=== PATIENT | female | born 1980 | race African-American/Black ===

== ENCOUNTER 2019-08-13 20:43 | Emergency (ER) | payer OTHER ==
[~2019-08-13] VITALS: Ht 149.9 cm; Wt 61.2 kg
--- NOTE | 2019-08-13 21:18 | PHYS DOC ---
Past Medical History Past Medical History: No Pertinent History Past Surgical History: No Surgical History Alcohol Use: Heavy Drug Use: Cocaine, Marijuana, Methamphetamine Adult General Chief Complaint Chief Complaint: ITCHING HPI HPI Patient is a 38 year old female who presents with itching this has been ongoing for an hour. The patient denies drug use initially but then reports that she did have drugs several weeks ago. The patient states that she's having itching before. Review of Systems Review of Systems Constitutional: Denies fever or chills [] Eyes: Denies change in visual acuity, redness, or eye pain [] HENT: Denies nasal congestion or sore throat [] Respiratory: Denies cough or shortness of breath [] Cardiovascular: No additional information not addressed in HPI [] GI: Denies abdominal pain, nausea, vomiting, bloody stools or diarrhea [] : Denies dysuria or hematuria [] Musculoskeletal: Denies back pain or joint pain [] Integument: Reports itching. Neurologic: Denies headache, focal weakness or sensory changes [] Endocrine: Denies polyuria or polydipsia [] Complete systems were reviewed and found to be within normal limits, except as documented in this note. Current Medications Current Medications Current Medications Medications (Trade) Dose Ordered Sig/Benjamin Start Time Stop Time Status Last Admin Dose Admin Diphenhydramine HCl (Benadryl) 25 mg 1X ONCE 08/13/19 21:15 08/13/19 21:17 DC 08/13/19 21:50 25 MG Haloperidol Lactate (Haldol Inj) 2.5 mg 1X ONCE 08/13/19 21:15 08/13/19 21:17 DC 08/13/19 21:50 2.5 MG Sodium Chloride 1,000 ml @ 1,000 mls/hr 1X STAT 08/13/19 22:18 08/13/19 23:17 DC 08/13/19 22:45 1,000 MLS/HR Allergies Allergies Allergies Coded Allergies Type Severity Reaction Last Updated Verified No Known Drug Allergies 08/13/19 No Physical Exam Physical Exam Constitutional: Well developed, well nourished, no acute distress, non-toxic appearance. [] HENT: Normocephalic, atraumatic, bilateral external ears normal, oropharynx moist, no oral exudates, nose normal. [] Eyes: PERRLA, EOMI, conjunctiva normal, no discharge. [] Neck: Normal range of motion, no tenderness, supple, no stridor. [] Respiratory: Breath sounds are clear in all lobes. Skin: Warm, dry, no erythema, no rash. Has dry skin patches on hands and face with scratch guzman. Back: No tenderness, no CVA tenderness. [] Neurologic: Alert and oriented X 3, normal motor function, normal sensory function, no focal deficits noted. [] Psychologic: Affect normal, judgement normal, mood normal. [] Current Patient Data Vital Signs Vital Signs Date Time Temp Pulse Resp B/P (MAP) Pulse Ox O2 Delivery O2 Flow Rate FiO2 08/13/19 23:35 81 10 98/63 (75) 100 Room Air 08/13/19 21:09 97.4 97.4 Lab Values Laboratory Tests Test 08/13/19 21:35 08/13/19 23:47 White Blood Count 8.0 x10^3/uL (4.0-11.0) Red Blood Count 4.59 x10^6/uL (3.50-5.40) Hemoglobin 12.9 g/dL (12.0-15.5) Hematocrit 39.1 % (36.0-47.0) Mean Corpuscular Volume 85 fL (79-100) Mean Corpuscular Hemoglobin 28 pg (25-35) Mean Corpuscular Hemoglobin Concent 33 g/dL (31-37) Red Cell Distribution Width 13.8 % (11.5-14.5) Platelet Count 275 x10^3/uL (140-400) Neutrophils (%) (Auto) 64 % (31-73) Lymphocytes (%) (Auto) 31 % (24-48) Monocytes (%) (Auto) 4 % (0-9) Eosinophils (%) (Auto) 1 % (0-3) Basophils (%) (Auto) 0 % (0-3) Neutrophils # (Auto) 5.1 x10^3/uL (1.8-7.7) Lymphocytes # (Auto) 2.5 x10^3/uL (1.0-4.8) Monocytes # (Auto) 0.3 x10^3/uL (0.0-1.1) Eosinophils # (Auto) 0.0 x10^3/uL (0.0-0.7) Basophils # (Auto) 0.0 x10^3/uL (0.0-0.2) Sodium Level 141 mmol/L (136-145) Potassium Level 3.3 mmol/L (3.5-5.1) L Chloride Level 104 mmol/L (98-107) Carbon Dioxide Level 27 mmol/L (21-32) Anion Gap 10 (6-14) Blood Urea Nitrogen 20 mg/dL (7-20) Creatinine 0.9 mg/dL (0.6-1.0) Estimated GFR (Cockcroft-Gault) 84.3 BUN/Creatinine Ratio 22 (6-20) H Glucose Level 139 mg/dL (70-99) H Calcium Level 8.9 mg/dL (8.5-10.1) Magnesium Level 1.8 mg/dL (1.8-2.4) Total Bilirubin 0.7 mg/dL (0.2-1.0) Aspartate Amino Transferase (AST) 16 U/L (15-37) Alanine Aminotransferase (ALT) 15 U/L (14-59) Alkaline Phosphatase 39 U/L (46-116) L Total Protein 7.3 g/dL (6.4-8.2) Albumin 3.7 g/dL (3.4-5.0) Albumin/Globulin Ratio 1.0 (1.0-1.7) Ethyl Alcohol Level < 10 mg/dL (0-10) Urine Opiates Screen Neg (NEG) Urine Methadone Screen Neg (NEG) Urine Barbiturates Neg (NEG) Urine Phencyclidine Screen Neg (NEG) Urine Amphetamine/Methamphetamine Pos (NEG) Urine Benzodiazepines Screen Neg (NEG) Urine Cocaine Screen Neg (NEG) Urine Cannabinoids Screen Pos (NEG) Urine Ethyl Alcohol Neg (NEG) Laboratory Tests 08/13/19 21:35 Laboratory Tests 08/13/19 21:35 EKG EKG [] Radiology/Procedures Radiology/Procedures [] Course & Med Decision Making Course & Med Decision Making Pertinent Labs and Imaging studies reviewed. (See chart for details) The patient appears to be tweaking on some kind of drug, her heart rate is 133. The patient is clawing at her skin repeatedly. We'll order labs,tox screen, and also order supportive care. Tox is positive for meth and cannaboids. Pulse is down to 81. Will d/c home. Dragon Disclaimer Dragon Disclaimer This electronic medical record was generated, in whole or in part, using a voice recognition dictation system. Departure Departure Impression: Primary Impression: Drug abuse Disposition: 01 HOME, SELF-CARE Condition: STABLE Referrals: NO PCP (PCP) Patient Instructions: Drug Abuse and Addiction-[facility], Drug Abuse, FAQs Additional Instructions: Thank you for visiting [facility]. We appreciate you trusting us with your care. If any additional problems come up don't hesitate to return to visit us. Please follow up with your primary care provider so they can plan additional care if needed and know about the problem that you had. If symptoms worsen come back to the Emergency Department. Any concerning symptoms that start such as chest pain, shortness of air, weakness or numbness on one side of the body, running high fevers or any other concerning symptoms return to the ER. Please stop using meth and cannabinoids. MARTITA ARAMBULA APRN Aug 13, 2019 21:18
[2019-08-13] MEDS: IV NORMAL SALINE 1000ML BAG 1,000 ML IV ONE (21:43)
[2019-08-13 21:49] LABS: BASO % 0 % (0-3); EOS % 1 % (0-3); HEMATOCRIT 39.1 % (36.0-47.0); HEMOGLOBIN 12.9 g/dL (12.0-15.5); LYMPH # 2.5 x10^3/uL (1.0-4.8); LYMPH % 31 % (24-48); MEAN CORPUSCULAR HEMOGLOBIN 28 pg (25-35); MEAN CORPUSCULAR HGB CONC 33 g/dL (31-37); MEAN CORPUSCULAR VOLUME 85 fL (79-100); MONO # 0.3 x10^3/uL (0.0-1.1); MONO % 4 % (0-9); NEUT # 5.1 x10^3/uL (1.8-7.7); NEUT % 64 % (31-73); PLATELET COUNT 275 x10^3/uL (140-400); RED BLOOD COUNT 4.59 x10^6/uL (3.50-5.40); RED CELL DISTRIBUTION WIDTH 13.8 % (11.5-14.5)
[2019-08-13] MEDS: diphenhydrAMINE 50 MG/ML VIAL IVP ONE (21:50)
[2019-08-13] MEDS: HALOPERIDOL LACTATE 5 MG/ML VIAL. IVP ONE (21:50)
[2019-08-13 22:01] LABS: CALCIUM 8.9 mg/dL (8.5-10.1); CREATININE 0.9 mg/dL (0.6-1.0); GFR 84.3; POTASSIUM 3.3 mmol/L (3.5-5.1)
[2019-08-13 22:07] LABS: ALBUMIN 3.7 g/dL (3.4-5.0); MAGNESIUM 1.8 mg/dL (1.8-2.4); TOTAL BILIRUBIN 0.7 mg/dL (0.2-1.0); TOTAL PROTEIN 7.3 g/dL (6.4-8.2)
[2019-08-13] MEDS: IV NORMAL SALINE 1000ML BAG 1,000 ML IV STA (22:45)
[2019-08-13 23:35] VITALS: BP 98/63
[2019-08-13 23:59] LABS: BARBITURATES NEG (NEG); BENZODIAZEPINES NEG (NEG); CANNABINOIDS POS (NEG); COCAINE NEG (NEG); METHADONE NEG (NEG); OPIATES NEG (NEG); PHENCYCLIDINE NEG (NEG)
[2019-08-14] LABS: AMPHETAMINE/METHAMPHETAMINE POS (NEG)
== END 2019-08-14 00:15 | disposition home or self-care (01) ==
LOC: ER 20:43
DX: F12.10 Cannabis abuse, uncomplicated (principal); F15.10 Other stimulant abuse, uncomplicated; F10.20 Alcohol dependence, uncomplicated; Y90.0 Blood alcohol level of less than 20 mg/100 ml
CPT/HCPCS: 36415; 80053; 80307; 83735; 85025; 96374; 96375; 99285; G0480; J1200; J1630; J7030